=== PATIENT | male | born 1955 | race African-American/Black ===

== ENCOUNTER 2017-06-24 23:50 | Inpatient (IN) | payer MEDICARE, OTHER ==
[~2017-06-24] VITALS: Ht 170.2 cm; Wt 90.7 kg
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
[2017-06-25 00:37] LABS: BASOPHILS % (AUTO) 0.3 % (0.0-2.0); EOSINOPHILS # (AUTO) 0.1 /CMM (0.0-0.7); HEMATOCRIT 38 % (39-51); HEMOGLOBIN 12.6 g/dL (13.5-17.5); LYMPHOCYTES # (AUTO) 1.5 /CMM (0.8-4.8); MEAN CORPUSCULAR HEMOGLOBIN 32 PG (26.0-33.0); MEAN CORPUSCULAR HGB CONC 33 g/dl (31.0-36.0); MEAN CORPUSCULAR VOLUME 98 fL (80-96); MONOCYTES # (AUTO) 0.5 /CMM (0.1-1.30); MONOCYTES % (AUTO) 5.2 % (2.0-12.0); NEUTROPHILS # (AUTO) 7.5 /CMM (1.8-8.9); NEUTROPHILS % (AUTO) 77.5 % (43.0-81.0); PLATELET COUNT (AUTO) 288 /CMM (150-450); RDW COEFFICIENT OF VARIATION 15.1 (11.5-15.0); RED BLOOD CELL COUNT(AUTO) 3.91 MIL/uL (4.5-6.0); WHITE BLOOD COUNT (AUTO) 9.7 K/uL (4.3-11.0)
[2017-06-25 00:48] LABS: CALCIUM, SERUM 9.1 mg/dL (8.5-10.1); CARBON DIOXIDE 26 mmol/L (21-32); CHLORIDE 108 mmol/L (98-107); GLUCOSE 92 mg/dL (74-106); POTASSIUM 3.9 mmol/L (3.5-5.1); SODIUM SERUM 144 mmol/L (136-145); UREA NITROGEN, BLOOD 17 mg/dL (7-18)
[2017-06-25 01:00] LABS: ALANINE AMINOTRANSFERASE 21 U/L (12-78); ALBUMIN 3.4 g/dL (3.4-5.0); ALCOHOL, BLOOD < 3 mg/dL (0-0); ALKALINE PHOSPHATASE 84 U/L (46-116); ASPARTATE AMINOTRANSFERASE 23 U/L (15-37); BILIRUBIN,DIRECT 0.1 mg/dL (0.0-0.2); BILIRUBIN,TOTAL 0.4 mg/dL (0.2-1.0); TOTAL PROTEIN, SERUM 6.8 g/dL (6.4-8.2)
[2017-06-25 01:01] LABS: ACETAMINOPHEN 0 ug/ml (10-30)
--- NOTE | 2017-06-25 01:03 | NUR ---
URINE COLLECTED AND SENT TO LAB PT IN BED RELAXING IN NO APPARENT DISTRESS
[2017-06-25 01:16] LABS: INR 0.98 (0.87-1.13); PROTHROMBIN TIME 10.5 SECS (9.5-12.7)
[2017-06-25 01:29] LABS: APPEARANCE,URINE CLEAR (CLEAR); BILIRUBIN,URINE 1+ (NEGATIVE); BLOOD, URINE NEGATIVE Ery/uL (NEGATIVE); COLOR,URINE YELLOW (YELLOW); KETONES,URINE NEGATIVE (NEGATIVE); LEUKOCYTE ESTERASE ,URINE NEGATIVE (NEGATIVE); NITRITE, URINE NEGATIVE (NEGATIVE); PH,URINE 5.5 (5.0-8.0); PROTEIN,URINE TRACE mg/dl (NEGATIVE); UGLUCOSE NEGATIVE (NEGATIVE); UROBILINOGEN,URINE 0.2 EU/dL (0.2)
[2017-06-25 01:45] LABS: BACTERIA,URINE None seen /HPF (None Seen); RBC,URINE 0-2 /HPF (0-2); WBC,URINE 0-2 /HPF (0-3)
[2017-06-25 01:46] LABS: CALCIUM OXALATE CRYSTALS,UR Many /HPF (None Seen); SQUAMOUS EPITHELIAL CELL,UR Few /HPF (None Seen)
--- NOTE | 2017-06-25 02:30 | NUR ---
PSYCH PRICING STRATEGIST AT BEDSIDE WILL CONTINUE TO MONITOR.
[2017-06-25] MEDS ORDERED: TEMAZEPAM 7.5 MG CAPSULE PO PRN (04:30)
[2017-06-25] MEDS ORDERED: MAGNESIUM HYDROXIDE 30 ML UDC PO PRN (04:30)
[2017-06-25] MEDS ORDERED: clonazePAM 0.5 MG TABLET PO PRN (04:30)
[2017-06-25] MEDS ORDERED: ACETAMINOPHEN 325 MG TABLET PO PRN (04:30)
[2017-06-25] MEDS ORDERED: MAG HYDROX/AL HYDROX/SIMETH 30 ML UDC PO PRN (04:30)
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
[2017-06-25 05:24] VITALS: BP 130/80
[2017-06-25] MEDS ORDERED: HYDR-3658 PO (05:30)
[2017-06-25] MEDS ORDERED: HYDR-3652 PO (05:30)
[2017-06-25] MEDS ORDERED: PENI500T PO (05:30)
[2017-06-25] MEDS ORDERED: LOSA25TA13 PO (05:30)
[2017-06-25] MEDS ORDERED: VENL150T PO (05:30)
[2017-06-25] MEDS ORDERED: CARV3.122 PO (05:30)
[2017-06-25] MEDS ORDERED: GABA-532 PO (05:30)
[2017-06-25] MEDS ORDERED: AMLO10TA2 PO (05:30)
[2017-06-25] MEDS ORDERED: IBUP100O14 PO (05:30)
[2017-06-25] MEDS ORDERED: BUPR100T6 PO (05:30)
[2017-06-25] MEDS ORDERED: NAPHAZOLINE ×2 (05:49→05:58)
--- NOTE | 2017-06-25 06:41 | NUR ---
RN GPS NOTE PT .REMAINED IN STABLE CONDITION /STILL SLEEPING AND RESTING IN HIS BED ,NO ACUTE DISTRESS NOTED ATTENDED ALL NEEDS AND ANTICIPATED , DENIES SI/ HI AT THIS TIME, UNABLE TO DO SKIN ASSESSMENT AND UNABLE TO TAKEN PICTURE , PT. STATED MAY LATER DURING IN DAY TIME ENDORSE TO NEXT SHIFT NURSE. WILL ENDORSE TO NEXT SHIFT FOR CONTINUITY OF CARE
--- NOTE | 2017-06-25 06:59 | NUR ---
RN GPS NOTES : CALLED [facility] REGARDING OF NEW ADMIT FOR MED RECAN , UNABLE TO GET ANY ANSWER , ENDORSE TO NEXT SHIFT FOR FOLLOW UP.
[2017-06-25 07:51] LABS: CHOLESTEROL 160 mg/dL (<200); HDL CHOLESTEROL 96 mg/dL (40-60); LDL 64 mg/dL (0-99); TRIGLYCERIDES 29 mg/dL (30-150)
[2017-06-25 08:00] VITALS: BP 156/87
--- NOTE | 2017-06-25 09:24 | NUR ---
GPS RN NOTE: PATIENT IN BED REFUSED SKIN ASSESSMENT
[2017-06-25 16:30] VITALS: BP 138/76
[2017-06-25] MEDS ORDERED: CARVEDILOL 3.125 MG TABLET PO SCH (17:00)
[2017-06-25] MEDS: VENLAFAXINE XR 150 MG CAP.SR.24H PO SCH (17:13)
[2017-06-25] MEDS: ARIPIPRAZOLE 2 MG TABLET PO SCH (17:13)
[2017-06-25] MEDS: GABAPENTIN 100 MG CAPSULE PO SCH (17:13)
[2017-06-25] MEDS: BUPROPION XL 150 MG TAB.ER.24 PO SCH (17:14)
[2017-06-25] MEDS: AMLODIPINE BESYLATE 10 MG TABLET PO SCH (17:14)
[2017-06-25] MEDS: LOSARTAN POTASSIUM 25 MG TABLET PO SCH (17:15)
--- NOTE | 2017-06-25 19:30 | NUR ---
RN GPS NOTE PT IN BED, RESTING COMFORTABLY. NO ACUTE DISTRESS NOTED ATTENDED ALL NEEDS AND ANTICIPATED , DENIES SI/ HI AT THIS TIME, UNABLE TO DO SKIN ASSESSMENT AND UNABLE TO TAKEN PICTURE, PT REFUSED, WILL ENDORSE TO NEXT SHIFT NURSE. SAFETY PRECAUTIONS OBSERVED. WILL CONT TO MONITOR.
[2017-06-25 20:00] VITALS: BP 146/68
--- NOTE | 2017-06-26 06:17 | NUR ---
RN GPS NOTE PT IN BED, ASLEEP AT THIS TIME. NO ACUTE DISTRESS NOTED, ALL NEEDS ATTENDED AND ANTICIPATED , DENIES SI/ HI. SAFETY PRECAUTIONS OBSERVED. WILL ENDORSE TO NEXT SHIFT FOR BRUCE.
[2017-06-26 08:00] VITALS: BP 129/73
[2017-06-26] MEDS ORDERED: CARVEDILOL 6.25 MG TABLET PO SCH ×2 (09:00→21:00)
[2017-06-26] MEDS: AMLODIPINE BESYLATE 10 MG TABLET PO SCH (09:21)
[2017-06-26] MEDS: VENLAFAXINE XR 150 MG CAP.SR.24H PO SCH (09:21)
[2017-06-26] MEDS: ARIPIPRAZOLE 2 MG TABLET PO SCH (09:22)
[2017-06-26] MEDS: GABAPENTIN 100 MG CAPSULE PO SCH ×3 (09:22→17:41)
[2017-06-26] MEDS: BUPROPION XL 150 MG TAB.ER.24 PO SCH (09:22)
[2017-06-26] MEDS: HYDROCODONE/APAP 5/325MG 1 EACH TABLET PO PRN ×2 (09:34→17:42)
--- NOTE | 2017-06-26 09:34 | NUR ---
ADMINISTERED NARCO 5/325 MG PO PN FOR GENERALIZED PAIN 05/10, PER PATIENT REQUEST, V/S TAKEN BP-129/73, P=91, CONTINUED MONITORING. ENCOURAGED TO INCREASE FLUID INTAKE.
[2017-06-26] MEDS: LOSARTAN POTASSIUM 25 MG TABLET PO SCH (09:35)
[2017-06-26] MEDS: CARVEDILOL 6.25 MG TABLET PO SCH ×2 (10:35→21:23)
--- NOTE | 2017-06-26 11:50 | NUR ---
Initial Discharge Plan: Patient lives alone [address] [facility] [address] [place] [address] ([phone]). Patient stated that he wants to return home. Sw spoke to patient's sister Susanna Zaragoza ([phone]) who confirmed that patient lives home alone and she stated that she lives in [place]. gas pit worker will help form a safe and proper discharge.
--- NOTE | 2017-06-26 13:37 | NUR ---
WOUND CARE CONSULT PATIENT SEEN. PATIENT HAS NO CUTS OR OPEN WOUND ON HANDS FOR FINGERS. PATIENT WITH JOLEEN AT 20, SKIN INTACT. PATIENT AMBULATORY AND INDEPENDENT WITH BED MOBILITY AND CONTINENT.
[2017-06-26 16:00] VITALS: BP 129/83
--- NOTE | 2017-06-26 17:42 | NUR ---
ADMINISTERED NARCO 5/325 MG PO PRN FOR GENERALIZED PAIN 06/09, V/S TAKE BP -129/83, P-83, PER PATIENT REQUEST, CONTINUED MONITORING.
--- NOTE | 2017-06-26 19:30 | NUR ---
GPS RN NOTE, RECEIVED PATIENT AWAKE AND IN BED, NO S/S OR COMPLAINTS OF PAIN AT THIS TIME. PATIENT IS DISPLAYING NO S/S OF APPARENT DISTRESS AT THIS TIME. PATIENT BREATHING IS UNLABORED WITH EQUAL RISE AND FALL OF THE CHEST. PATIENT IS ALERT AND ORIENTED X 3 ON ROOM AIR WITH A SPO2 99%. PATIENT COMPLIANT WITH MEDICATION, ANXIOUS, COOPERATIVE, CALM, AND NEEDS REORIENTATION. PATIENT DENIES SUICIDE AND HOMICIDAL IDEATIONS AT THIS TIME. PATIENT ASSISTED WITH TURNING AND REPOSITIONING Q2HR AND PRN FOR COMFORT AND CIRCULATION. PATIENT HAS NO NEEDS AT THIS TIME. PATIENT EDUCATED ON THE USE OF THE CALL GUSMAN. PATIENT BED SIDE RAILS UP X2 FOR SAFETY, BED IS LOCKED AND LOW WILL CONTINUE TO MONITOR AND MAINTAIN SAFETY.
[2017-06-26 20:00] VITALS: BP 111/75
[2017-06-27 08:00] VITALS: BP 120/73
[2017-06-27] MEDS: VENLAFAXINE XR 150 MG CAP.SR.24H PO SCH (08:04)
[2017-06-27] MEDS: AMLODIPINE BESYLATE 10 MG TABLET PO SCH (08:04)
[2017-06-27] MEDS: BUPROPION XL 150 MG TAB.ER.24 PO SCH (08:04)
[2017-06-27] MEDS: CARVEDILOL 6.25 MG TABLET PO SCH ×2 (08:04→22:05)
[2017-06-27] MEDS: GABAPENTIN 100 MG CAPSULE PO SCH ×3 (08:04→17:17)
[2017-06-27] MEDS: LOSARTAN POTASSIUM 25 MG TABLET PO SCH (08:05)
[2017-06-27] MEDS: ARIPIPRAZOLE 2 MG TABLET PO SCH (08:56)
[2017-06-27] MEDS: HYDROCODONE/APAP 5/325MG 1 EACH TABLET PO PRN ×2 (08:57→17:23)
[2017-06-27 16:22] VITALS: BP 107/69
--- NOTE | 2017-06-27 16:56 | NUR ---
Discharge Note: Patient will be discharged back home [address] [facility] [address] [place] [address] ([phone]). Via taxi. Patient's sister Susanna Zaragoza ([phone]) was notified. Patient and patient's sister were agreeable with the discharge plan. Patient mood and affect are appropriate. Patient denied suicidal and homicidal ideations. Patient referred to [facility] [address] [facility] [place] [id number] . Patient was referred to [facility] [address] for an intake appointment for Friday07/04/17 at 2:00pm. Patient was referred to a smoking cessation meeting for 07/04/17 at 7:00pm at the [facility] in [facility]. Facilitated info to IDT team who are in agreement with discharge arrangement. The multidisciplinary exitcare form was done, printed, signed, and given to the patient.
[2017-06-27 20:00] VITALS: BP 117/60
[2017-06-28] MEDS: LOSARTAN POTASSIUM 25 MG TABLET PO SCH (08:14)
[2017-06-28] MEDS: GABAPENTIN 100 MG CAPSULE PO SCH (08:15)
[2017-06-28] MEDS: AMLODIPINE BESYLATE 10 MG TABLET PO SCH (08:15)
[2017-06-28] MEDS: BUPROPION XL 150 MG TAB.ER.24 PO SCH (08:15)
[2017-06-28] MEDS: VENLAFAXINE XR 150 MG CAP.SR.24H PO SCH (08:15)
[2017-06-28 08:16] VITALS: BP 120/68
[2017-06-28] MEDS: CARVEDILOL 6.25 MG TABLET PO SCH (08:16)
--- NOTE | 2017-06-28 08:26 | NUR ---
DR. STREET GAVE AN ORDER TO D/C HOLD AND D/C HOME TODAY. PT. WITHOUT DISTRESS, DENIES SUICIDAL AND HOMICIDAL AND TO FOLLOW UP WITH PSYCH AND MEDICAL DOCTORS.
[2017-06-28] MEDS ORDERED: ARIPIPRAZOLE 2 MG TABLET PO SCH (09:00)
--- NOTE | 2017-06-28 10:40 | NUR ---
GPS RN: PATIENT DISCHARGED HOME AT [address] [facility] [address], [place] [address] ([phone]) VIA TAXI. PATIENT'S SISTER JUDY GUERRERO ([phone]) HAS BEEN NOTIFIED BY THE TRACTOR EXPERT. PATIENT IS A/O X4, AMBULATORY, CONTINENT, SELF-CARE. PATIENT'S CONDITION IS STABLE FOR DISCHARGE, VS STABLE. PATIENT DENIES ANY SI/HI/AVH, COOPERATIVE AND COMPLIANT, AND NO BEHAVIORAL ISSUES NOTED AT THE TIME OF DISCHARGE. ALL BELONGINGS RETURNED TO THE PATIENT, PROPERTY MANAGEMENT FORM SIGNED. PATIENT PROVIDED WITH A PRESCRIPTION, THE COPY OF THE CURRENT MED LIST, AND EDUCATIONAL EXIT CARE. PATIENT STATED HAS REFILLS FOR THE REST OF HIS MEDICATIONS AND WILL FILL HIS PRESCRIPTION TODAY IN HIS PHARMACY. INSTRUCTED TO FOLLOW UP WITH HIS PCP AFTER DISCHARGE AND EDUCATED ON THE IMPORTANCE OF TAKING THE MEDICATIONS PRESCRIBED. PATIENT VERBALIZED UNDERSTANDING OF TEACHING. PATIENT LEFT THE UNIT AT THIS TIME ACCOMPANIED BY ONE STAFF.
== END 2017-06-28 10:40 | disposition home or self-care (01) | DRG 885 ==
LOC: ER 23:50 → GPS 06-25 03:42
PROVIDERS: ADMIT Psychiatry & Neurology Psychiatry; ATTEND Nurse Practitioner Acute Care
DX: F33.3 Major depressive disorder, recurrent, severe with psychotic symptoms (principal); F15.20 Other stimulant dependence, uncomplicated; F29 Unspecified psychosis not due to a substance or known physiological condition; D64.9 Anemia, unspecified; F12.10 Cannabis abuse, uncomplicated; I10 Essential (primary) hypertension; Z87.891 Personal history of nicotine dependence; S61.411A Laceration without foreign body of right hand, initial encounter; Y28.1XXA Contact with knife, undetermined intent, initial encounter; Y93.9 Activity, unspecified; Y92.009 Unspecified place in unspecified non-institutional (private) residence as the place of occurrence of the external cause; Z79.899 Other long term (current) drug therapy; W26.0XXA Contact with knife, initial encounter
CPT/HCPCS: 36415; 80048-TC; 80061-TC; 80076-TC; 80305; 81000-TC; 82565-TC; 85025-TC; 85730-TC; 87081-TC; A4606; G0480; Z7610

== ENCOUNTER 2017-09-04 15:15 | Emergency (ER) | payer MEDICARE, OTHER ==
[~2017-09-04] VITALS: Ht 180.3 cm; Wt 90.7 kg
[~2017-09-04 15:15] MED LIST: AMLO10TA2 PO; CARV3.122 PO; GABA-532 PO; HYDR-3652 PO; HYDR-3658 PO; IBUP100O14 PO; LOSA25TA13 PO; NAPHAZOLINE; PENI500T PO
[2017-09-04 16:07] VITALS: BP 138/80
== END 2017-09-04 16:33 | disposition home or self-care (01) ==
LOC: ER 15:17
DX: L03.116 Cellulitis of left lower limb (principal); I10 Essential (primary) hypertension; F17.200 Nicotine dependence, unspecified, uncomplicated; Z98.890 Other specified postprocedural states
CPT/HCPCS: 99283; A4606; Z7610

== ENCOUNTER 2017-09-14 15:23 | Inpatient (IN) | payer MEDICARE, OTHER ==
[~2017-09-14] VITALS: Ht 177.8 cm; Wt 82.6 kg
--- NOTE | 2017-09-14 15:30 | NUR ---
BIB LOGGING SPECIALIST --MEDICAL CLEARANCE FOR GPS ADMISSION ON 5150 HOLD, NAD NOTED, VSS, WAITING FOR MD ZAVALA.
[2017-09-14 15:48] LABS: BASOPHILS # (AUTO) 0.1 /CMM (0.0-0.2); BASOPHILS % (AUTO) 0.7 % (0.0-2.0); EOSINOPHILS % (AUTO) 0.2 % (0.0-6.0); HEMATOCRIT 42 % (39-51); HEMOGLOBIN 13.8 g/dL (13.5-17.5); LYMPHOCYTES # (AUTO) 1.2 /CMM (0.8-4.8); LYMPHOCYTES % (AUTO) 14.5 % (20.0-44.0); MEAN CORPUSCULAR HEMOGLOBIN 32 PG (26.0-33.0); MEAN CORPUSCULAR HGB CONC 33 g/dl (31.0-36.0); MEAN CORPUSCULAR VOLUME 97 fL (80-96); MONOCYTES # (AUTO) 0.5 /CMM (0.1-1.30); MONOCYTES % (AUTO) 6.4 % (2.0-12.0); NEUTROPHILS # (AUTO) 6.7 /CMM (1.8-8.9); NEUTROPHILS % (AUTO) 78.2 % (43.0-81.0); PLATELET COUNT (AUTO) 433 /CMM (150-450); RED BLOOD CELL COUNT(AUTO) 4.34 MIL/uL (4.5-6.0); WHITE BLOOD COUNT (AUTO) 8.5 K/uL (4.3-11.0)
[2017-09-14 15:58] LABS: CALCIUM, SERUM 9.6 mg/dL (8.5-10.1); CARBON DIOXIDE 26 mmol/L (21-32); CHLORIDE 107 mmol/L (98-107); CREATININE 1.2 mg/dL (0.6-1.3); GLUCOSE 97 mg/dL (74-106); POTASSIUM 4.7 mmol/L (3.5-5.1); SODIUM SERUM 139 mmol/L (136-145); UREA NITROGEN, BLOOD 30 mg/dL (7-18)
[2017-09-14 16:03] LABS: ALANINE AMINOTRANSFERASE 29 U/L (12-78); ALBUMIN 3.5 g/dL (3.4-5.0); ALCOHOL, BLOOD < 3 mg/dL (0-0); ALKALINE PHOSPHATASE 91 U/L (46-116); ASPARTATE AMINOTRANSFERASE 44 U/L (15-37); BILIRUBIN,DIRECT 0.2 mg/dL (0.0-0.2); BILIRUBIN,TOTAL 0.5 mg/dL (0.2-1.0); TOTAL PROTEIN, SERUM 7.3 g/dL (6.4-8.2)
[2017-09-14 16:04] LABS: ACETAMINOPHEN < 10 ug/ml (10-30)
[2017-09-14 16:19] LABS: APPEARANCE,URINE Slightly Cloudy (CLEAR); BILIRUBIN,URINE SMALL (NEGATIVE); BLOOD, URINE Negative Ery/uL (NEGATIVE); COLOR,URINE Dark (YELLOW); KETONES,URINE 15 (NEGATIVE); LEUKOCYTE ESTERASE ,URINE Negative (NEGATIVE); NITRITE, URINE Negative (NEGATIVE); PROTEIN,URINE Negative (NEGATIVE); UGLUCOSE Negative (NEGATIVE)
[2017-09-14 16:28] LABS: BACTERIA,URINE Few /HPF (None Seen); RBC,URINE 0-2 /HPF (0-2); SQUAMOUS EPITHELIAL CELL,UR Few /HPF (None Seen); WBC,URINE 0-2 /HPF (0-3)
[2017-09-14] MEDS ORDERED: BUPR300T52 PO (17:01)
[2017-09-14] MEDS ORDERED: VENL150C58 PO (17:01)
[2017-09-14] MEDS ORDERED: TEMAZEPAM 7.5 MG CAPSULE PO PRN (20:00)
[2017-09-14] MEDS ORDERED: MAGNESIUM HYDROXIDE 30 ML UDC PO PRN (20:00)
[2017-09-14] MEDS ORDERED: MAG HYDROX/AL HYDROX/SIMETH 30 ML UDC PO PRN (20:00)
[2017-09-14] MEDS ORDERED: LORAZEPAM 1 MG TABLET PO PRN (20:00)
[2017-09-14] MEDS ORDERED: ACETAMINOPHEN 325 MG TABLET PO PRN (20:00)
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
[2017-09-14 20:19] VITALS: BP 140/97
[2017-09-14] MEDS ORDERED: CEPH500C2 PO (22:39)
[2017-09-15 07:21] LABS: BASOPHILS % (AUTO) 0.3 % (0.0-2.0); EOSINOPHILS # (AUTO) 0.1 /CMM (0.0-0.7); EOSINOPHILS % (AUTO) 0.8 % (0.0-6.0); HEMATOCRIT 41 % (39-51); HEMOGLOBIN 13.4 g/dL (13.5-17.5); LYMPHOCYTES # (AUTO) 2.4 /CMM (0.8-4.8); LYMPHOCYTES % (AUTO) 27.9 % (20.0-44.0); MEAN CORPUSCULAR HEMOGLOBIN 33 PG (26.0-33.0); MEAN CORPUSCULAR HGB CONC 33 g/dl (31.0-36.0); MEAN CORPUSCULAR VOLUME 99 fL (80-96); MONOCYTES # (AUTO) 0.8 /CMM (0.1-1.30); MONOCYTES % (AUTO) 9.2 % (2.0-12.0); NEUTROPHILS # (AUTO) 5.3 /CMM (1.8-8.9); NEUTROPHILS % (AUTO) 61.8 % (43.0-81.0); PLATELET COUNT (AUTO) 373 /CMM (150-450); RDW COEFFICIENT OF VARIATION 14.9 (11.5-15.0); RED BLOOD CELL COUNT(AUTO) 4.11 MIL/uL (4.5-6.0); WHITE BLOOD COUNT (AUTO) 8.6 K/uL (4.3-11.0)
[2017-09-15 07:42] LABS: BILIRUBIN,TOTAL 0.7 mg/dL (0.2-1.0); CALCIUM, SERUM 8.9 mg/dL (8.5-10.1); CREATININE 1.1 mg/dL (0.6-1.3); POTASSIUM 3.9 mmol/L (3.5-5.1); TOTAL PROTEIN, SERUM 6.6 g/dL (6.4-8.2)
[2017-09-15 08:37] VITALS: BP 139/76
[2017-09-15] MEDS: LOSARTAN POTASSIUM 25 MG TABLET PO SCH (08:41)
[2017-09-15] MEDS: AMLODIPINE BESYLATE 10 MG TABLET PO SCH (08:41)
[2017-09-15] MEDS: CARVEDILOL 3.125 MG TABLET PO SCH ×2 (08:42→16:08)
[2017-09-15] MEDS: NITROFURANTOIN/NITROFURAN MAC 100 MG CAPSULE PO SCH ×2 (09:00→09:07)
--- NOTE | 2017-09-15 10:01 | NUR ---
GPS RN NOTE: DR MANDEEP Ye ORDER DC MACROBID 100 MG ORDER PLACED AND CARED OUT
--- NOTE | 2017-09-15 12:09 | NUR ---
GPS RN NOTE: PER DR MANDEEP Ye ORDER PODIATRY CONSULT , CALLED GRISELDA RICE FOR CONSULT ORDER PLACED .
[2017-09-15 16:17] VITALS: BP 111/78
[2017-09-15] MEDS: risperiDONE 1 MG TABLET PO SCH (17:15)
[2017-09-15 20:05] VITALS: BP 115/63
[2017-09-16 08:00] VITALS: BP 119/68
[2017-09-16] MEDS: risperiDONE 1 MG TABLET PO SCH ×2 (09:54→18:09)
[2017-09-16] MEDS: CARVEDILOL 3.125 MG TABLET PO SCH ×2 (09:54→18:08)
[2017-09-16] MEDS: VENLAFAXINE XR 150 MG CAP.SR.24H PO SCH (09:54)
--- NOTE | 2017-09-16 10:30 | NUR ---
X-RAY DONE OF LT. FOOT.
[2017-09-16] MEDS: LOSARTAN POTASSIUM 25 MG TABLET PO SCH (11:00)
--- NOTE | 2017-09-16 11:56 | NUR ---
Initial Discharge Note: Patient lives alone at [address] [facility] [address] [place] [address]. ([phone]) and would like to return home upon discharge. SW spoke to patient's sister Magalie Zaragoza ([phone]) who stated that she was concerned about patient and confirmed that patient does live home alone. marriage and family social worker will help form a safe and proper discharge.
[2017-09-16] MEDS: AMLODIPINE BESYLATE 10 MG TABLET PO SCH (12:00)
[2017-09-16 15:47] VITALS: BP 122/70
--- NOTE | 2017-09-16 16:10 | NUR ---
MANUEL CESPEDES IN TO SEE PT.ORDERS GIVEN.
[2017-09-16 20:14] VITALS: BP 99/52
--- NOTE | 2017-09-17 06:18 | NUR ---
GPS RN: PATIENT'S VITAL SIGNS RECHECKED BP-126/71 T97.6 RR-19 OR-69 O2 SAT-99%. PATIENT ASLEEP. NO COMPLAINS OF PAIN OR DISCOMFORT THIS TIME. WILL ENDORSE PATIENT TO DAY SHIFT NURSE.
[2017-09-17 06:23] VITALS: BP 126/70
[2017-09-17] MEDS: VENLAFAXINE XR 150 MG CAP.SR.24H PO SCH (08:17)
[2017-09-17] MEDS: LOSARTAN POTASSIUM 25 MG TABLET PO SCH (08:17)
[2017-09-17] MEDS: AMLODIPINE BESYLATE 10 MG TABLET PO SCH (08:17)
[2017-09-17] MEDS: risperiDONE 1 MG TABLET PO SCH ×2 (08:17→17:00)
[2017-09-17] MEDS: CARVEDILOL 3.125 MG TABLET PO SCH ×2 (08:18→17:00)
[2017-09-17] MEDS: DOCUSATE SODIUM 100 MG CAPSULE PO SCH ×2 (08:27→17:01)
[2017-09-17 08:54] VITALS: BP 100/53
[2017-09-17 16:26] VITALS: BP 114/69
[2017-09-17 19:40] VITALS: BP 108/60
[2017-09-18 08:00] VITALS: BP 110/64
[2017-09-18] MEDS: CARVEDILOL 3.125 MG TABLET PO SCH ×2 (09:00→16:39)
[2017-09-18] MEDS: AMLODIPINE BESYLATE 10 MG TABLET PO SCH (09:00)
[2017-09-18] MEDS: LOSARTAN POTASSIUM 25 MG TABLET PO SCH (09:00)
[2017-09-18] MEDS: risperiDONE 1 MG TABLET PO SCH ×2 (09:27→16:39)
[2017-09-18] MEDS: DOCUSATE SODIUM 100 MG CAPSULE PO SCH ×2 (09:27→16:39)
[2017-09-18] MEDS: VENLAFAXINE XR 150 MG CAP.SR.24H PO SCH (09:27)
[2017-09-18 16:00] VITALS: BP 102/63
[2017-09-18] MEDS ORDERED: NA PHOS,M-B/NA PHOS,DI-BA 1 EA ENEMA RC ONE (17:30)
--- NOTE | 2017-09-18 17:51 | NUR ---
DESULFURIZER MACHINE-NOTES FLEET ENEMA NOT ADMINISTER DUE TO PER PATIENT HE ALREADY HAD ONE LARGE BM. STATED " I DON'T NEED IT ANYMORE".
[2017-09-18 20:00] VITALS: BP 105/89
[2017-09-18 20:01] VITALS: BP 105/89
[2017-09-19 08:00] VITALS: BP 119/71
[2017-09-19] MEDS: VENLAFAXINE XR 150 MG CAP.SR.24H PO SCH (08:51)
[2017-09-19] MEDS: risperiDONE 1 MG TABLET PO SCH (08:51)
[2017-09-19] MEDS: DOCUSATE SODIUM 100 MG CAPSULE PO SCH (08:52)
[2017-09-19] MEDS: AMLODIPINE BESYLATE 10 MG TABLET PO SCH (08:52)
[2017-09-19] MEDS: LOSARTAN POTASSIUM 25 MG TABLET PO SCH (08:52)
[2017-09-19 08:53] VITALS: BP 119/71
[2017-09-19] MEDS: CARVEDILOL 3.125 MG TABLET PO SCH (08:53)
--- NOTE | 2017-09-19 11:27 | NUR ---
WOUND CARE CONSULT WOUND CARE RECEIVED CONSULT FOR LEFT FOOT ABRASION. I CALLED AND SPOKE TO PRIMARY RN AND INSTRUCTED HER TO PLEASE CALL THE CRIME SPECIALIST WHO HAS BEEN SEEING THIS PATIENT TO EVALUATE THIS WOUND HE NEEDS TO KNOW THAT THE WOUND IS RE-OPENED AT THIS TIME. SHE STATED SHE WOULD NOTIFY DPM. WOUND CARE WILL DEFER TO PRIMARY DPM AT THIS TIME. PATIENT WITH CURRENT JOLEEN AT 22.
--- NOTE | 2017-09-19 11:33 | NUR ---
GPS RN: PATIENT NOTED WITH SCANT BLEEDING AND ABRASION ON HIS LEFT TOP OF THE FOOT. DR. JACKSON CONSULTED THE PATIENT (SEE NOTES) NOTIFIED. WILL COME AND SEE THE PATIENT TODAY.
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
--- NOTE | 2017-09-19 15:10 | NUR ---
GPS RN: PATIENT RELEASED BY THE PC HEARING AND DISCHARGED HOME. PATIENT IS AO X4, ABLE TO CARE FOR SELF, PATIENT'S CONDITION IS STABLE FOR DISCHARGE, VS STABLE. PATIENT DENIES SI/HI/AVH AT THE TIME OF DISCHARGE. PATIENT PROVIDED WITH PRESCRIPTION FOR PSYCHOTROPIC MEDICATIONS. PATIENT STATED HAS A FULL SUPPLY OF HIS OTHER MEDICATIONS AT HOME. ALL BELONGINGS RETURNED TO THE PATIENT. PATIENT PROVIDED WITH TAXI VOUCHER. LEFT THE UNIT ACCOMPANIED BY STAFF.
--- NOTE | 2017-09-19 15:25 | NUR ---
Discharge Note: Patient was discharged home to [address] [place] [address] [address] [place] [address]. ([phone]) via taxi at 3:00pm. The discharge happened quickly, as patient was released by the courts and had to be discharged from hospital. Patient appeared to be alert and oriented. Patients memory and thought process seemed unimpaired. Patients sister, Magalie [phone], is aware and in agreement with discharge. Patient will follow up with a psychiatrist at [facility] [address] [facility] [address] [address] on Friday, 09/23. Patient was encouraged to present at the [facility] [address] [facility] [address] at 9am on Saturday 09/22 for intake to discuss his substance use. Patient was also encouraged to present at a Nicotine Anonymous meeting on Friday, 09/21 at 5:30pm at [address] [place], [place] to discuss his smoking.
[2017-09-19] MEDS ORDERED: POVIDONE-IODINE OINT 28.4 GM TUBE TP SCH (17:00)
== END 2017-09-19 15:15 | disposition home or self-care (01) | DRG 885 ==
LOC: ER 15:30 → GPS 19:01
PROVIDERS: ADMIT Psychiatry & Neurology Psychiatry; ATTEND Internal Medicine
DX: F29 Unspecified psychosis not due to a substance or known physiological condition (principal); N17.0 Acute kidney failure with tubular necrosis; F31.9 Bipolar disorder, unspecified; E86.0 Dehydration; F17.210 Nicotine dependence, cigarettes, uncomplicated; I10 Essential (primary) hypertension; Z83.3 Family history of diabetes mellitus; F15.10 Other stimulant abuse, uncomplicated; R26.9 Unspecified abnormalities of gait and mobility; M79.672 Pain in left foot; S90.812A Abrasion, left foot, initial encounter; X58.XXXA Exposure to other specified factors, initial encounter; Y93.9 Activity, unspecified; Y92.009 Unspecified place in unspecified non-institutional (private) residence as the place of occurrence of the external cause; F19.10 Other psychoactive substance abuse, uncomplicated; K59.00 Constipation, unspecified
CPT/HCPCS: 36415; 73630-TC; 80048-TC; 80053-TC; 80061-TC; 80076-TC; 80305; 81000-TC; 85025-TC; 87081-TC; A4606; G0480; Z7610